=== PATIENT | male | born 1980 | race Native Hawaiian/Other Pacific Islander ===

== ENCOUNTER 2019-06-24 14:03 | Emergency (ER) | payer SELFPAY ==
[~2019-06-24] VITALS: Ht 180 cm; Wt 108.0 kg
[2019-06-24 14:11] VITALS: BP 105/67
[2019-06-24] MEDS ORDERED: LISI40TA (14:20)
--- NOTE | 2019-06-24 14:29 | ED General ---
General Chief Complaint: General Problems/Pain Stated Complaint: FACIAL SWELLING Nursing Triage Note: States his lips started swelling this morning. States it does not feel like his tongue is swollen. Denies difficulty swallowing or breathing. States this has happened before and usually goes away in a day. Has been years since it has occured. Has been on lisinopril for almost 1 year. Took 50 mg benadryl at 1100 this morning. Nursing Sepsis Screen: No Definite Risk History of Present Illness Date Seen by Provider: June 24, 2019 Time Seen by Provider: 14:27 Initial Comments as above edematous swollen lips no other sx's not SOB no rash Allergies and Home Medications Allergies Coded Allergies: No Known Drug Allergies (Unverified , 06/24/19) Patient Home Medication List Home Medication List Reviewed: Yes Review of Systems Review of Systems Constitutional: no symptoms reported EENTM: see HPI, other (lip swelling only symptom) Respiratory: no symptoms reported Cardiovascular: no symptoms reported Gastrointestinal: no symptoms reported Genitourinary: no symptoms reported Musculoskeletal: no symptoms reported Skin: No rash Past Ilndvis-Qbijpw-Vknccr Hx Patient Social History Alcohol Use: Regular Use Number of Drinks Today: 3 Alcohol Beverage of Choice: Beer Recreational Drug Use: Yes Drug of Choice: marijuana Smoking Status: Current Everyday Smoker Type Used: Cigarettes 2nd Hand Smoke Exposure: Yes Recent Foreign Travel: No Contact w/Someone Who Travel: No Recent Infectious Disease Expo: No Recent Hopitalizations: No Seasonal Allergies Seasonal Allergies: No Past Medical History Surgeries: Yes (hernia; EGD) Respiratory: No Cardiac: Yes Hypertension Neurological: No Genitourinary: No Gastrointestinal: Yes (bleeding ulcers) Musculoskeletal: No Endocrine: No HEENT: No Cancer: No Psychosocial: No Integumentary: No Blood Disorders: No Adverse Reaction/Blood Tranf: No Physical Exam Vital Signs Vital Signs - First Documented 06/24/19 14:11 Temp 37.1 Pulse 106 Resp 16 B/P (MAP) 105/67 (80) Pulse Ox 97 Capillary Refill : Less Than 3 Seconds Height, Weight, BMI Height: '" Weight: lbs. oz. kg; 33.00 BMI Method: General Appearance: No Apparent Distress Eyes: Bilateral Eye PERRL, Bilateral Eye EOMI HEENT: TMs Normal, Pharynx Normal, Other (angioedema of lips) Neck: Full Range of Motion Respiratory: Lungs Clear, Normal Breath Sounds Cardiovascular: Regular Rate, Rhythm Gastrointestinal: Normal Bowel Sounds Extremity: Normal Inspection Progress/Results/Core Measures Suspected Sepsis Recent Fever Within 48 Hours: No Infection Criteria Present: None New/Unexplained Altered Menta: No Sepsis Screen: No Definite Risk SIRS Temperature: Pulse: 106 Respiratory Rate: 16 Blood Pressure 105 /67 Mean: 80 Results/Orders Vital Signs/I&O Capillary Refill : Less Than 3 Seconds Blood Pressure Mean: 80 Departure Impression Primary Impression: Angioedema Qualified Codes: T78.3XXA - Angioneurotic edema, initial encounter Disposition: HOME, SELF-CARE Condition: Unchanged Departure-Patient Inst. Decision time for Depature: 14:28 Referrals: NO,LOCAL PHYSICIAN (PCP/Family) Primary Care Physician Patient Instructions: Angioedema (DC) Add. Discharge Instructions: we recommend you stop taking the lisinopril the lip swelling is a common reaction associated with lisinopril Please keep track of her blood pressure and consult your primary physician for further decision making All discharge instructions reviewed with patient and/or family. Voiced understanding. DANIELLE STEVENS MD June 24, 2019 14:29
--- OUTSIDE RECORDS SUMMARY | 2019-06-24 14:30 | XMS REPORT ---
Author Author Darell QUEZADA [facility] eClinicalWorks Address Unknown Phone Unavailable Care Team Providers Care Measurement Operator Name Role Phone RADHA QUEZADA CP Unavailable Allergies No Known Allergies Problems No Known Problems Medications No Known Medications Results No Known Results Summary Purpose eClinicalWorks Submission
--- OUTSIDE RECORDS SUMMARY | 2019-06-24 14:30 | XMS REPORT | Continuity of Care Document ---
Author Organization Unknown Address Unknown Phone Unavailable Allergies There is no data. Medications There is no data. Problems There is no data. Procedures There is no data. Results Test Result Range CBC w/MANUAL DIFF - 06/21/18 12:12 WHITE BLOOD CELL COUNT 12.0 Thousand/uL 3.8-10.8 RED BLOOD CELL COUNT 4.32 Million/uL 4.2 0-5.80 HEMOGLOBIN 13.2 g/dL 13.2-17.1 HEMATOCRIT 39.8 % 38.5-50.0 MCV 92.1 fL 80.0-100.0 MCH 30.6 pg 27.0-33.0 MCHC 33.2 g/dL 32.0-36.0 RDW 15.7 % 11.0-15.0 PLATELET COUNT 319 Thousand/uL 140-400 MPV 9.7 fL 7.5-12.5 ABSOLUTE NEUTROPHILS 9276 cells/uL 1500- 7800 ABSOLUTE MONOCYTES 492 cells/uL 200-950 ABSOLUTE EOSINOPHILS 0 cells/uL 15-500 ABSOLUTE BASOPHILS 0 cells/uL 0-200 NEUTROPHILS 77.3 % NRG LYMPHOCYTES 18.6 % NRG MONOCYTES 4.1 % NRG EOSINOPHILS 0 % NRG BASOPHILS 0 % NRG ABSOLUTE LYMPHOCYTES 2232 cells/uL 850-3 900 PLATELET ESTIMATION ADEQUATE ADEQUATE CBC MORPHOLOGY NORMAL BMP - 10/12/18 09:02 GLUCOSE 78 mg/dL 65-139 UREA NITROGEN (BUN) 8 mg/dL 7-25 CREATININE 0.83 mg/dL 0.60-1.35 eGFR NON-AFR. GABONESE 110 mL/min/1.73m2 > OR = 60 eGFR 128 mL/min/1.73m2 > OR = 60 BUN/CREATININE RATIO NOT APPLICABLE (calc) 6-22 SODIUM 131 mmol/L 135-146 POTASSIUM 4.4 mmol/L 3.5-5.3 CHLORIDE 96 mmol/L 98-110 CARBON DIOXIDE 25 mmol/L 20-32 CALCIUM 9.3 mg/dL 8.6-10.3 VITAMIN B1 (THIAMINE) - 10/12/18 09:04 VITAMIN B1 (THIAMINE), BLOOD, LC/MS/MS 83 nmol/L 78-185 VITAMIN B12/FOLATE, SERUM PANEL - 09:06 VITAMIN B12 787 pg/mL 200-1100 FOLATE, SERUM 5.4 ng/mL NRG Encounters ACCT No. Visit Date/Time Discharge Status Pt. Type Provider Facility Loc./Unit Complaint [id number] 06/13/2019 08:00:00 06/13/2019 23:59:5 9 CLS Outpatient VALERIE MCMAHAN, VALENTIN Luis [facility] [address] [id number] 10/12/2018 08:00:00 Document Registration [id number] 06/21/2018 11:20:00 Document Registration
--- OUTSIDE RECORDS SUMMARY | 2019-06-24 14:30 | XMS REPORT ---
Author Author Darell QUEZADA [facility] eClinicalWorks Address Unknown Phone Unavailable Care Team Providers Care Geospatial Technician Name Role Phone RADHA QUEZADA CP Unavailable Allergies, Adverse Reactions, Alerts Substance Reaction Event Type N.K.D.A. Info Not Available Non Drug Allergy Problems Problem Type Condition Code Onset Dates Condition Statu s Assessment Abscess L02.91 Active Medications Medication Code System Code Instructions Start Date End Date Status Dosage Amlodipine Besylate [facility] [address]-30 10 MG Orally Once a day 1 tablet Bactrim DS [facility] [address]-22 800-160 MG Orally 2 times a day O ct 2014Dec 29, 2014 1 tablet Lisinopril [facility] [address]-60 40 MG Orally Once a day 1 tablet Procedures Procedure Coding System Code Date CULTURE BACTERIA ANAEROBIC CPT-4 28238 Nov 242014 CULTURE, BACTERIA, OTHER CPT-4 31726 Dec 19, 2014 Office Visit, New Pt., Level 4 CPT-[address] 2014 Vital Signs Date/Time: Dec 19, 2014 Temperature 99.3 F Weight 278.5 lbs Height 71 in BMI 38.84 Index Blood Pressure Diastolic 90 mmHg Blood Pressure Systolic 144 mmHg Cardiac Monitoring Heart Rate 88 bpm Results No Known Results Summary Purpose eClinicalWorks Submission
== END 2019-06-24 14:44 | disposition home or self-care (01) ==
LOC: ER FS 14:06
DX: T78.3XXA Angioneurotic edema, initial encounter (principal); F17.210 Nicotine dependence, cigarettes, uncomplicated
CPT/HCPCS: 99281

== ENCOUNTER → 2020-02-20 | Outpatient (CLI) ==
[~2020-02-20] MED LIST: LISI40TA
== END ==
LOC: LABNPT 22:38
PROVIDERS: ATTEND Nurse Practitioner Family
DX: Z20.828 Contact with and (suspected) exposure to other viral communicable diseases (principal)
CPT/HCPCS: 87635